=== PATIENT | male | born 1975 | race Caucasian/White ===

== ENCOUNTER 2016-02-11 00:01 | Emergency (ER) | payer MEDICAID ==
[~2016-02-11] VITALS: Ht 182.9 cm; Wt 74.8 kg
[2016-02-11 00:54] VITALS: BP 111/60
== END 2016-02-11 02:22 | disposition home or self-care (01) ==
LOC: ER 00:03
DX: H92.01 Otalgia, right ear (principal)
CPT/HCPCS: 99283; A4606; Z7610

== ENCOUNTER 2016-02-12 10:28 | Emergency (ER) | payer BC, MEDICAID ==
[~2016-02-12] VITALS: Ht 182.9 cm; Wt 78.9 kg
[2016-02-12 13:11] VITALS: BP 116/74
== END 2016-02-12 13:11 | disposition home or self-care (01) ==
LOC: ER 10:31
DX: R51 Headache (principal); G89.29 Other chronic pain; H92.09 Otalgia, unspecified ear; N44.00 Torsion of testis, unspecified
CPT/HCPCS: 70450; 99284; A4606; Z7610

== ENCOUNTER 2016-02-16 09:08 | Emergency (ER) | payer BC ==
[~2016-02-16] VITALS: Ht 182.9 cm; Wt 78.9 kg
[2016-02-16] MEDS ORDERED: METOCLOPRAMIDE HCL 10 MG/2 ML VIAL ONE (09:29)
[2016-02-16] MEDS ORDERED: diphenhydrAMINE HCL 50 MG/ML VIAL ONE (09:29)
[2016-02-16] MEDS ORDERED: IV NS 0.9% 1,000 ML ONE (09:30)
[2016-02-16] MEDS ORDERED: diphenhydrAMINE HCL 50 MG/ML VIAL IV ONE (09:30)
[2016-02-16] MEDS ORDERED: IV NS 0.9% 1,000 ML BAG IV ONE (09:30)
[2016-02-16] MEDS ORDERED: METOCLOPRAMIDE HCL 10 MG/2 ML VIAL IV ONE (09:30)
[2016-02-16] MEDS ORDERED: IV SET PRIMARY PUMP SET 1 EA INFUS.SET MC ONE (09:30)
[2016-02-16 09:40] LABS: BASOPHILS % (AUTO) 0.4 % (0.0-2.0); DIFF TOTAL % 100 %; EOSINOPHILS # (AUTO) 0.2 /CMM (0.0-0.7); EOSINOPHILS % (AUTO) 2.9 % (0.0-6.0); HEMATOCRIT 50 % (39-51); HEMOGLOBIN 16.7 g/dL (13.5-17.5); LYMPHOCYTES # (AUTO) 3.3 /CMM (0.8-4.8); LYMPHOCYTES % (AUTO) 48.7 % (20.0-44.0); MEAN CORPUSCULAR HEMOGLOBIN 30 PG (26.0-33.0); MEAN CORPUSCULAR HGB CONC 34 g/dl (31.0-36.0); MEAN CORPUSCULAR VOLUME 89 fL (80-96); MONOCYTES # (AUTO) 0.4 /CMM (0.1-1.30); MONOCYTES % (AUTO) 6.2 % (2.0-12.0); NEUTROPHILS # (AUTO) 2.8 /CMM (1.8-8.9); NEUTROPHILS % (AUTO) 41.8 % (43.0-81.0); PLATELET COUNT (AUTO) 268 /CMM (150-450); WHITE BLOOD COUNT (AUTO) 6.8 K/uL (4.3-11.0)
[2016-02-16] MEDS ORDERED: CT SWABBABLE VALVE TRANS SET 1 EA INFUS.SET MC ONE (09:40)
[2016-02-16] MEDS ORDERED: IV NS 0.9% 250 ML IV ONE (09:40)
[2016-02-16] MEDS ORDERED: IOHEXOL-350 100 ML VIAL IV ONE (09:40)
[2016-02-16 09:48] LABS: CALCIUM, SERUM 9.2 mg/dL (8.5-10.1); CREATININE 1.3 mg/dL (0.6-1.3); POTASSIUM 3.2 mmol/L (3.5-5.1)
[2016-02-16 10:09] LABS: INR 0.99 (0.87-1.13); PROTHROMBIN TIME 10.7 SECS (9.5-12.7)
[2016-02-16 11:22] VITALS: BP 138/75
== END 2016-02-16 11:22 | disposition home or self-care (01) ==
LOC: ER 09:09
DX: R51 Headache (principal); J45.909 Unspecified asthma, uncomplicated; F41.9 Anxiety disorder, unspecified
CPT/HCPCS: 36415; 70496; 70498; 80048; 85025; 85730; 96361; 96374; 96375; 99285; A4606; J1200; J2765; J7030; J7050; Q9967; Z7610

== ENCOUNTER 2016-02-17 08:19 | Emergency (ER) | payer BC ==
[~2016-02-17] VITALS: Ht 175.3 cm; Wt 79.4 kg
[2016-02-17] MEDS ORDERED: diphenhydrAMINE HCL 50 MG/ML VIAL ONE (08:28)
[2016-02-17] MEDS ORDERED: METOCLOPRAMIDE HCL 10 MG/2 ML VIAL ONE (08:28)
[2016-02-17] MEDS ORDERED: DEXAMETHASONE SOD PHOSPHATE 10 MG/ML VIAL ONE (08:28)
[2016-02-17] MEDS ORDERED: IV NS 0.9% 1,000 ML ONE (08:29)
[2016-02-17] MEDS ORDERED: IV SET PRIMARY 1 EA INFUS.SET MC ONE (08:29)
[2016-02-17] MEDS ORDERED: IV NS 0.9% 50 ML IV ONE (08:29)
[2016-02-17] MEDS ORDERED: IV SET PRIMARY PUMP SET 1 EA INFUS.SET MC ONE (08:29)
[2016-02-17] MEDS ORDERED: METOCLOPRAMIDE HCL 10 MG/2 ML VIAL IV ONE (08:30)
[2016-02-17] MEDS ORDERED: IV NS 0.9% 1,000 ML BAG IV ONE (08:30)
[2016-02-17] MEDS ORDERED: diphenhydrAMINE HCL 50 MG/ML VIAL IV ONE (08:30)
[2016-02-17] MEDS ORDERED: DEXAMETHASONE SOD PHOSPHATE 10 MG in IV D5W 50 ML IV ONE (08:30)
[2016-02-17] MEDS ORDERED: LORAZEPAM INJ 2 MG/ML VIAL ONE (08:43)
[2016-02-17] MEDS ORDERED: LORAZEPAM INJ 2 MG/ML VIAL IV ONE (09:00)
[2016-02-17 09:45] VITALS: BP 118/65
== END 2016-02-17 09:47 | disposition home or self-care (01) ==
LOC: ER 08:21
DX: R51 Headache (principal); F41.9 Anxiety disorder, unspecified; J45.909 Unspecified asthma, uncomplicated; G89.29 Other chronic pain; N44.00 Torsion of testis, unspecified
CPT/HCPCS: 96361; 96374; 96375; 99284; A4216; A4606; J1100; J1200; J2060; J2765; J7030; Z7610

== ENCOUNTER 2016-02-19 09:55 | Emergency (ER) | payer BC ==
[~2016-02-19] VITALS: Ht 182.9 cm; Wt 70.8 kg
[2016-02-19] MEDS ORDERED: METOCLOPRAMIDE HCL 10 MG/2 ML VIAL ONE (10:36)
[2016-02-19] MEDS ORDERED: KETOROLAC TROMETHAMINE INJ 30 MG/ML VIAL ONE (10:37)
[2016-02-19] MEDS ORDERED: KETOROLAC TROMETHAMINE INJ 60 MG/2 ML VIAL IM ONE (11:00)
[2016-02-19] MEDS ORDERED: METOCLOPRAMIDE HCL 10 MG/2 ML VIAL IM ONE (11:00)
[2016-02-19 12:46] VITALS: BP 132/77
== END 2016-02-19 12:46 | disposition home or self-care (01) ==
LOC: ER 09:56
DX: R51 Headache (principal); J30.9 Allergic rhinitis, unspecified; H92.09 Otalgia, unspecified ear; J45.909 Unspecified asthma, uncomplicated; F10.20 Alcohol dependence, uncomplicated
CPT/HCPCS: 96372 ×2; 99284; A4606; J1885; J2765; Z7610

== ENCOUNTER 2016-05-18 11:43 | Emergency (ER) | payer BC ==
[~2016-05-18] VITALS: Ht 182.9 cm; Wt 78.0 kg
[2016-05-18 11:47] VITALS: BP 139/88
== END 2016-05-18 14:59 | disposition home or self-care (01) ==
LOC: ER 11:45
DX: M25.532 Pain in left wrist (principal); J45.909 Unspecified asthma, uncomplicated; Z98.890 Other specified postprocedural states; V89.2XXA Person injured in unspecified motor-vehicle accident, traffic, initial encounter; Y93.39 Activity, other involving climbing, rappelling and jumping off; Y92.413 State road as the place of occurrence of the external cause; Y99.8 Other external cause status
CPT/HCPCS: 29125; 73110; 99284; A4606; Z7610